=== PATIENT | male | born 1995 | race Two or more races ===

== ENCOUNTER 2018-10-21 17:18 | Emergency (ER) ==
[~2018-10-21] VITALS: Ht 188 cm; Wt 89.4 kg
[2018-10-21 17:25] VITALS: BP 126/67
[2018-10-21] MEDS ORDERED: diphenhydrAMINE HCL 25 MG CAPSULE ONE (17:35)
[2018-10-21] MEDS ORDERED: DIPHENHYDRAMINE HCL 12.5 MG/5 ML UDC PO ONE (18:00)
== END 2018-10-21 17:45 ==
LOC: ER 17:23
DX: F41.0 Panic disorder [episodic paroxysmal anxiety] (principal)
CPT/HCPCS: 99284; Q0163 ×2